=== PATIENT | male | born 1990 | race Caucasian/White ===

== ENCOUNTER 2024-02-13 20:47 | Emergency (ER) | payer SELFPAY ==
--- NOTE | 2024-02-13 21:06 | EDPHYS ---
Physician Documentation [facility] Name: Gregory Galeano Age: 33 yrs Sex: Male : 1990 Arrival Date: 02/13/2024 Time: 20:47 Bed 3 Private MD: ED Physician Miguel Morales HPI: 02/12 20:58 This 33 yrs old Male presents to ER via Unassigned with complaints of sp4 possible overdose . 02/13 20:32 Patient presents with EMS also with police escort after he was found unresponsive in sp4 the bathroom at the restaurant.. 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 Patient was given Narcan intranasal and has regained consciousness. Patient denied any drug use. Police is here because patient was arrested for possession of narcotic. Patient is currently in custody. Patient on arrival has refused labs refused IV fluids refused further medical assessment. Patient initially agreed for 2-hour monitoring in the emergency room but then patient has refused monitoring in the emergency room and requested discharge to retirement. . Historical: - Allergies: 02/12 21:14 No Known Allergies; br2 - Immunization history:: Adult Immunizations not up to date. - Infectious Disease History:: Denies. - Social history:: Smoking status: Patient reports the use of cigarette tobacco products, smokes one-half pack cigarettes per day, Patient uses street drugs, marijuana. - Family history:: not pertinent. ROS: 02/13 20:32 Constitutional: Negative for fever, chills, and weight loss, positive syncope and sp4 collapse, possitive possible opiate overdose All other systems are negative, Exam: 20:34 Constitutional: This is a well developed, well nourished patient who is awake, alert, sp4 and in no acute distress. Positive for disheveled male, refused medical care on arrival Head/Face: Normocephalic, atraumatic. Eyes: Pupils equal round and reactive to light, extra-ocular motions intact. Lids and lashes normal. Conjunctiva and sclera are not injected. Cornea within normal limits. Periorbital areas with no swelling, redness, or edema. ENT: Nares patent. No nasal discharge, no septal abnormalities noted. Tympanic membranes are normal and external auditory canals are clear. Oropharynx with no redness, swelling, or masses, exudates, or evidence of obstruction, uvula midline. Mucous membranes moist. Neck: Trachea midline, no thyromegaly or masses palpated, and no cervical lymphadenopathy. Supple, full range of motion without nuchal rigidity, or vertebral point tenderness. Chest/axilla: Normal chest wall appearance and motion. Nontender with no deformity. No lesions are appreciated. Cardiovascular: Regular rate and rhythm with a normal S1 and S2. No gallops, murmurs, or rubs. Normal PMI, no JVD. No pulse deficits. Respiratory: Lungs have equal breath sounds bilaterally, clear to auscultation and percussion. No rales, rhonchi or wheezes noted. No increased work of breathing, no retractions or nasal flaring. Abdomen/GI: Soft, with normal bowel sounds. No distension or tympany. No guarding or rebound. No evidence of tenderness throughout. Back: No spinal tenderness. No costovertebral tenderness. Skin: Warm, dry with normal turgor. Normal color with no rashes, no lesions, and no evidence of cellulitis. MS/ Extremity: Pulses equal, no cyanosis. Neurovascular intact. Full, normal range of motion. Neuro: Awake and alert, GCS 15, oriented to person, place, time, and situation. Cranial nerves II-XII grossly intact. Motor strength 5/5 in all extremities. Sensory grossly intact. Psych: Awake, alert, with orientation to person, place and time. Behavior, mood, and affect are within normal limits Vital Signs: 02/12 20:40 BP 129 / 82; Pulse 106; Resp 20 S; Temp 98.2(O); Pulse Ox 99% on R/A; Weight 77.11 kg; br2 Height 6 ft. 1 in. ; Pain 0/10; 20:40 Body Mass Index 22.43 (77.11 kg, 185.42 cm) br2 20:40 Pain Scale: Adult br2 [place] Coma Score: 02/13 20:34 Eye Response: spontaneous(4). Motor Response: obeys commands(6). Verbal Response: sp4 oriented(5). Total: 15. MDM: 02/12 21:06 Patient medically screened. sp4 02/13 20:36 Differential Diagnosis altered mental status, sepsis, flu, Opiate overdose, Fentanyl sp4 overdose. Data reviewed: vital signs, nurses notes, EMS record. Consideration of Admission/Observation Escalation of care including admission/observation considered. ED course: Has refused medical care, refused labs refused IV fluids refused monitoring the emergency room.. Vital Signs are stable patient was informed that he can have complications other than that patient wishes for discharge and we will provide patient with informed discharge. . Administered Medications: No medications were administered Disposition: 20:37 Chart complete. sp4 Disposition Summary: 02/13/24 21:06 Discharge Ordered Problem: new sp4 Symptoms: have improved sp4 Condition: Fair sp4 Diagnosis - Acute syncopal episode, possible opiate overdose sp4 Followup: sp4 - With: Private Physician - When: 7 - 10 days - Reason: Recheck today's complaints Discharge Instructions: - Discharge Summary Sheet sp4 - Medical Screening Exam sp4 Forms: - Patient Portal Instructions sp4 Signatures: Miguel Morales MD MD sp4 Mandy Gross RN RN br2
--- NOTE | 2024-02-13 21:33 | ER ---
Nurse's Notes [facility] Name: Gregory Galeano Age: 33 yrs Sex: Male : 1990 Arrival Date: 02/13/2024 Time: 20:47 Bed 3 Private MD: Diagnosis: Acute syncopal episode, possible opiate overdose Presentation: 02/12 20:40 Chief complaint: Patient states: PT WAS FOUND ON THE BATHROOM FLOOR AT [facility] br2 UNRESPONSIVE. PT WAS GIVEN NARCAN 4MG NASAL AND PT WOKE UP. PT IS IN POLICE CUSTODY. DENIES ANY PAIN ON ER ARRIVAL AND DENIES IV OR LAB WORK. Chief complaint:. Coronavirus screen: Client denies travel out of the [place] in the last 14 days. At this time, the client does not indicate any symptoms associated with coronavirus-19. Ebola Screen: Patient negative for fever greater than or equal to 101.5 degrees Fahrenheit, and additional compatible Ebola Virus Disease symptoms Patient denies exposure to infectious person. Patient denies travel to an Ebola-affected area in the 21 days before illness onset. Initial Sepsis Screen: Does the patient meet any 2 criteria? No. Patient's initial sepsis screen is negative. Does the patient have a suspected source of infection? No. Patient's initial sepsis screen is negative. Risk Assessment: Do you want to hurt yourself or someone else? Patient reports no desire to harm self or others. Onset of symptoms was February 13, 2024 at 20:30. 20:40 Method Of Arrival: EMS: [facility] br2 20:40 Acuity: YAMILETH 3 br2 Triage Assessment: 20:56 General: Appears in no apparent distress. comfortable, slender, Behavior is calm, br2 uncooperative, REFUSING IV OR LAB WORK. Pain: Denies pain. EENT: No signs and/or symptoms were reported regarding the EENT system. Neuro: Mohan Agitation-Sedation Scale (RASS): 0 - Alert and Calm Level of Consciousness is awake, alert, obeys commands, confused, Oriented to person, place, time, Speech is normal, Facial symmetry appears normal. Cardiovascular: Denies chest pain, shortness of breath, Capillary refill < 3 seconds Rhythm is. Respiratory: Airway is patent Respiratory effort is even, unlabored, Respiratory pattern is regular, symmetrical. GI: No signs and/or symptoms were reported involving the gastrointestinal system. Abdomen is flat. : No signs and/or symptoms were reported regarding the genitourinary system. Derm: No signs and/or symptoms reported regarding the dermatologic system. Skin is intact, Skin is dry, Skin is normal, Skin temperature is warm. Musculoskeletal: No signs and/or symptoms reported regarding the musculoskeletal system. Capillary refill < 3 seconds, Range of motion: intact in all extremities. Historical: - Allergies: 21:14 No Known Allergies; br2 - Immunization history:: Adult Immunizations not up to date. - Infectious Disease History:: Denies. - Social history:: Smoking status: Patient reports the use of cigarette tobacco products, smokes one-half pack cigarettes per day, Patient uses street drugs, marijuana. - Family history:: not pertinent. Screenin:[facility] ED Fall Risk Assessment (Adult) History of falling in the last 3 months, br2 including since admission No falls in past 3 months (0 pts) Confusion or Disorientation No (0 pts) Intoxicated or Sedated No (0 pts) Impaired Gait No (0 pts) Mobility Assist Device Used No (0 pt) Altered Elimination No (0 pt) Score/Fall Risk Level 0 - 2 = Low Risk. Abuse screen: Denies threats or abuse. Nutritional screening: No deficits noted. Tuberculosis screening: No symptoms or risk factors identified. Assessment: 20:40 Reassessment: No changes from previously documented assessment. SEE TRIAGE. br2 21:30 Reassessment: PT DENIES ANY MEDIAL TREATMENT AND IS REQUESTING TO BE DISCHARGED. br2 Vital Signs: 20:40 BP 129 / 82; Pulse 106; Resp 20 S; Temp 98.2(O); Pulse Ox 99% on R/A; Weight 77.11 kg; br2 Height 6 ft. 1 in. ; Pain 0/10; 20:40 Body Mass Index 22.43 (77.11 kg, 185.42 cm) br2 20:40 Pain Scale: Adult br2 [place] Coma Score: 02/13 20:34 Eye Response: spontaneous(4). Motor Response: obeys commands(6). Verbal Response: sp4 oriented(5). Total: 15. ED Course: 02/12 20:45 Patient has correct armband on for positive identification. Bed in low position. Call br2 light in reach. Side rails up X 1. Security at bedside. Provided Education on: PLAN OF CARE. 20:52 Patient arrived in ED. sb4 20:58 Miguel Morales MD is Attending Physician. sp4 21:08 Mandy Gross, RN is Primary Nurse. br2 21:10 No provider procedures requiring assistance completed. Patient did not have IV access br2 during this emergency room visit. 21:14 Triage completed. br2 Administered Medications: No medications were administered Medication: 20:50 VIS not applicable for this client. br2 Outcome: 21:06 Discharge ordered by . sp4 21:10 Discharged to Law Enforcement br2 21:10 Condition: unchanged 21:10 Discharge instructions given to patient, police, Instructed on discharge instructions, follow up and referral plans. Demonstrated understanding of instructions, 21:33 Patient left the ED. br2 Signatures: Awa Anderson, PA-C PA-C sb4 Miguel Morales MD MD sp4 Mandy Gross, CARA RN br2
== END 2024-02-13 21:33 | disposition home or self-care (01) ==
LOC: ER 20:47
DX: R55 Syncope and collapse (principal); F17.210 Nicotine dependence, cigarettes, uncomplicated
CPT/HCPCS: 99284